=== PATIENT | female | born 1995 | race African-American/Black ===

== ENCOUNTER 2021-01-01 10:58 | Emergency (ER) | payer OTHER ==
[~2021-01-01] VITALS: Ht 160 cm; Wt 63.8 kg
[2021-01-01 10:59] VITALS: BP 143/77
[2021-01-01] MEDS ORDERED: NEXP1IMP SC (11:11)
[2021-01-01 13:15] LABS: BASO % 0.5 % (0.0-1.0); EOS % 0.6 % (0.0-3.0); HEMATOCRIT 41.2 % (36.0-47.0); HEMOGLOBIN 13.5 g/dl (12.0-15.5); LYMPH # 2.3 10^3/uL (1.5-5.0); MEAN CORPUSCULAR HEMOGLOBIN 29.3 pg (27.0-33.0); MEAN CORPUSCULAR HGB CONC 32.8 g/dl (32.0-36.5); MEAN CORPUSCULAR VOLUME 89.6 fl (80.0-96.0); MONO # 0.4 10^3/uL (0.0-0.8); MONO % 6.7 % (2.0-8.0); NEUTROPHILS # 3.7 10^3/uL (1.5-8.5); NEUTROPHILS % 56.9 % (36.0-66.0); PLATELET COUNT, AUTOMATED 245 10^3/uL (150-450); WHITE BLOOD COUNT 6.6 10^3/uL (4.0-10.0)
[2021-01-01 13:38] LABS: ALBUMIN 4.1 GM/DL (3.2-5.2); ALT/SGPT 31 U/L (12-78); BILIRUBIN,DIRECT 0.1 MG/DL (0.0-0.2); BILIRUBIN,TOTAL 0.4 MG/DL (0.2-1.0); LIPASE 133 U/L (73-393); TOTAL PROTEIN 7.3 GM/DL (6.4-8.2)
[2021-01-01 13:40] LABS: HCG, SERUM QUALITATIVE NEGATIVE (NEGATIVE)
[2021-01-01 15:04] LABS: GC DNA AMPLIFICATION NEGATIVE (NEGATIVE)
[2021-01-01] MEDS ORDERED: IBUPROFEN 600MG TAB PO ONE (15:05)
--- NOTE | 2021-01-01 15:16 | REP ---
INDICATION: constipation left abd pain COMPARISON: None. TECHNIQUE: Supine view of the abdomen and pelvis. FINDINGS: Bowel gas pattern is nonspecific and without obstruction or perforation. Mild fecal stasis cannot be excluded. No organomegaly. No abnormal calcifications. Skeletal structures intact. IMPRESSION: Nonspecific bowel gas.. Mild fecal stasis. <Electronically signed by Josr Carmona > 01/01/21 [id number]
--- NOTE | 2021-01-01 15:52 | REP ---
INDICATION: L pelvic pain, cervicitis, pain to adnexa on exam COMPARISON: None. TECHNIQUE: Transabdominal pelvic ultrasound followed by transvaginal examination for better evaluation of the endometrium and adnexa with color Doppler evaluation of the ovaries. FINDINGS: Bladder is under distended and currently measures 4.4 x 4.2 x 2.2 cm. Normal anteverted uterus measures 7.2 x 3.2 x 4.2 cm. The endometrial complex measures 3.1 mm thickness. No discrete uterine or endometrial abnormalities are appreciated. Bilateral ovaries are normal in appearance and vascularity without evidence for torsion. Right ovary measures 3.7 x 3.1 x 2.8 cm with 2.4 cm presumed physiologic cyst; R I = 0.41. Left ovary measures 2.3 x 1.6 x 2.3 cm; R I = 0.54. No pelvic fluid or adnexal mass lesion IMPRESSION: Normal pelvic ultrasound. <Electronically signed by Josr Carmona > 01/01/21 [id number]
[2021-01-01] MEDS ORDERED: MIRA3350 PO (16:16)
[2021-01-01] MEDS ORDERED: COLA100C5 PO (16:16)
== END 2021-01-01 16:36 | disposition home or self-care (01) ==
LOC: M ED 10:58
DX: N72 Inflammatory disease of cervix uteri (principal); K59.00 Constipation, unspecified; R10.2 Pelvic and perineal pain; Z87.448 Personal history of other diseases of urinary system; Z79.4 Long term (current) use of insulin